=== PATIENT | female | born 1970 | race Caucasian/White ===

== ENCOUNTER 2022-12-09 11:02 | Outpatient (OUT) | payer BC, SELFPAY ==
--- NOTE | 2022-12-09 11:11 | ECG_ITS ---
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
--- NOTE | 2022-12-09 11:35 | XR_ITS ---
The [address] [address] Patient Name: CHEN RICHARD MRN: [id number] date: 1970 Sex: F Assigned Patient Location: [facility] Current Patient Location: Accession/Order Number: [id number] Exam Date: 12/09/2022 11:50 Report Date: 12/10/2022 09:23 At the request of: SARAH CAMILO Procedure: XR chest 2V EXAM: XR chest 2V HISTORY: PRE OP EXAM COMPARISON: None. TECHNIQUE: PA and lateral views of the chest. FINDINGS: The cardiomediastinal silhouette is normal. No focal consolidation is identified. There is no pneumothorax. No pleural effusion is noted. There are healed fracture deformity of the left ribs. XR/XR chest 2V IMPRESSION: No acute cardiopulmonary process. Electronically authenticated by: REESE LEDEZMA Date: 12/10/2022 09:23
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
[2022-12-09 12:13] LABS: Basophils Percent Auto 0.8 % (0.2-2.0); Eosinophils Absolute Auto 0.2 10^3/uL (0.0-0.7); Eosinophils Percent Auto 4.6 % (0.9-7.0); Hematocrit 37.2 % (36.0-48.0); Hemoglobin 12.6 g/dL (12.0-16.0); Immature Granulocytes Abs Auto 0.01 10^3/uL (0.00-0.03); Immature Granulocytes Pct Auto 0.3 % (0.0-0.5); Lymphocytes Absolute Auto 1.4 10^3/uL (1.2-3.8); Lymphocytes Percent Auto 36.7 % (20.5-60.0); Mean Corpuscular HGB Conc 33.9 g/dL (29.9-35.2); Mean Corpuscular Hemoglobin 29.2 pg (26.7-34.0); Mean Corpuscular Volume 86.3 fL (81.0-99.0); Mean Platelet Volume 9.2 fL (9.5-13.5); Monocytes Absolute Auto 0.3 10^3/uL (0.3-0.8); Monocytes Percent Auto 9.2 % (1.7-12.0); Neutrophils Absolute Auto 1.8 10^3/uL (1.4-6.5); Neutrophils Percent Auto 48.4 % (43.0-75.0); Platelet Count 259 10^3/uL (150-450); Red Blood Count 4.31 10^6/uL (4.20-5.40); Red Cell Distribution Width 12.1 % (11.0-15.0); White Blood Count 3.7 10^3/uL (4.0-11.0)
[2022-12-09 12:30] LABS: Anion Gap 10.4; BUN Creatinine Ratio 23.3; Carbon Dioxide 30.3 mmol/L (21.0-32.0); Chloride 104 mmol/L (98-107); Estimated GFR (African America >60 (>=60); Estimated GFR (Non-African Ame >60 (>=60); Glucose 93 mg/dL (74-106); Potassium 3.7 mmol/L (3.5-5.1); Sodium 141 mmol/L (136-145)
== END 2022-12-09 11:03 | disposition home or self-care (01) ==
LOC: PST 11:04
PROVIDERS: Visit Provider Urology
DX: Z01.810 Encounter for preprocedural cardiovascular examination (principal); Z01.812 Encounter for preprocedural laboratory examination; R31.9 Hematuria, unspecified; F32.A Depression, unspecified; F17.210 Nicotine dependence, cigarettes, uncomplicated; N35.92 Unspecified urethral stricture, female
CPT/HCPCS: 71046; 80048; 85025; 93005; G0463

== ENCOUNTER 2022-12-16 07:38 | Day surgery (SDC) | payer BC, SELFPAY ==
[2022-12-09 11:49] VITALS: BP 99/69; PULSE 60; RESP 16; TEMP 36.3; O2SAT 98; BMI 25.6
[2022-12-16 07:55] VITALS: BP 109/56; PULSE 58; RESP 16; TEMP 35.9; O2SAT 96
[2022-12-16] MEDS: LACTATED RINGER'S SOLUTION 1,000 ML 50 ML IV ×2 (08:08→10:07)
[2022-12-16] MEDS: CEFAZOLIN SODIUM/DEXTROSE,ISO 1 GM/50 ML IV.SOLN IV (08:55)
[2022-12-16 09:24] VITALS: BP 87/59; PULSE 60; RESP 19; TEMP 36.5; O2SAT 95
--- NOTE | 2022-12-16 09:28 | PM.URSON ---
Urology Surgery Operative Note Operative Note Procedure Date: 12/16/22 Time Out Performed: yes Pre-op Diagnosis: recurrent urethral stricture Post-op Diagnosis: same as pre-op Procedures performed: #1. Urethral dilation with [place] sounds to 32 Citizen [place]. #2. Cystoscopy. Anesthesia: MAC and local Primary Surgeon: Maikol Nichole Complications: none Estimated blood loss (mL): 5 Findings: #1. Severe urethral stenosis. #2. Severe atrophic vaginitis. #3. Moderate cystocele Specimens: non- Indications for Procedures: The patient was brought to the operating room and placed on the operating room table in the supine position. SCDs were placed on the lower extremities and turned on and functioning during the entire case. Timeout was done by all parties in the room. We all agreed upon the patient's identification and the planned procedures for this patient. Mac anesthesia was then administered. The patient was then repositioned into the modified dorsal lithotomy position. All pressure points were satisfactorily padded. Genitalia were sterilely prepped and draped in usual fashion. upon initial inspection I could see that she had severe urethral stenosis. 22 Citizen [place] cystoscope would not fit. She also had rather severe atrophic vaginitis. I started by using Maik sounds. She was dilated from 16 [place] up to 32 [place]. Her tissues were fairly brittle and dry. I then passed the cystoscope into the bladder. Panendoscopy showed no evidence of any tumors or stones. She had surprisingly high-grade trabeculation with a few diverticuli formation. She also had a significant grade 2-3 cystocele. The bladder was drained of its contents. The scope was then removed. She was then transferred to a [facility] bed and wheeled to PACU in stable condition. We will get her started on estradiol vaginal cream 1 g twice weekly. She has been instructed to rub a small amount around the urethra at each application also.
[2022-12-16 09:39] VITALS: BP 88/61; PULSE 50; RESP 19; O2SAT 95
[2022-12-16 09:54] VITALS: BP 90/56; PULSE 55; RESP 18; O2SAT 95
--- NOTE | 2022-12-16 10:10 | PC.NURSE ---
Patient attempted to urinate without success. hung new bag of fluids and she is drinking water.
[2022-12-16 10:24] VITALS: BP 95/52; PULSE 60; RESP 16; O2SAT 97
--- NOTE | 2022-12-16 10:49 | PC.NURSE ---
Patient denies pain at discharge and urinated without difficulty at this time.
== END 2022-12-16 10:48 | disposition home or self-care (01) ==
PROVIDERS: Visit Provider Urology
PROC: (CPT 52281; principal; 2022-12-16 08:50)
DX: N35.12 Postinfective urethral stricture, not elsewhere classified, female (principal); F17.210 Nicotine dependence, cigarettes, uncomplicated; F32.A Depression, unspecified; R10.9 Unspecified abdominal pain; Z90.710 Acquired absence of both cervix and uterus; Z98.51 Tubal ligation status; R33.9 Retention of urine, unspecified; R35.1 Nocturia; Z87.440 Personal history of urinary (tract) infections; N39.46 Mixed incontinence; R31.21 Asymptomatic microscopic hematuria; N94.10 Unspecified dyspareunia; N95.2 Postmenopausal atrophic vaginitis; N81.10 Cystocele, unspecified; N32.89 Other specified disorders of bladder
CPT/HCPCS: 52281; 36415

== ENCOUNTER 2023-04-29 12:39 | Emergency (ER) | payer BC, SELFPAY ==
[2023-04-29 12:46] VITALS: BP 116/77; PULSE 68; RESP 18; TEMP 36.8; O2SAT 97; BMI 25.5
--- NOTE | 2023-04-29 13:06 | CT_ITS ---
The [address] [address] Patient Name: CHEN RICHARD MRN: [id number] date: 1970 Sex: F Assigned Patient Location: ER Current Patient Location: ER Accession/Order Number: [id number] Exam Date: 04/29/2023 13:12 Report Date: 04/29/2023 13:35 At the request of: TANNER HENDERSON Procedure: CT head/brain wo con EXAM: CT head/brain wo con CLINICAL INDICATION: head injury TECHNIQUE: Unenhanced computerized tomography of the head was performed. Automated dose reduction technique was employed. COMPARISON: None. FINDINGS: The ventricles are normal in size, configuration, and position for age. There is no intra- or extra-axial mass, hemorrhage, or fluid collection. No areas of abnormal mass effect or attenuation are noted. Visualized paranasal sinuses are free of mucosal disease. No depressed calvarial fracture. CT/CT head/brain wo con IMPRESSION: No acute intracranial abnormality noted. Electronically authenticated by: SCOOBY LOPEZ Date: 04/29/2023 13:35
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
[2023-04-29] MEDS: ACETAMINOPHEN 500 MG TABLET 1000 MG PO (13:31)
[2023-04-29] MEDS: ONDANSETRON 4 MG RAPDIS TABLET SL (13:32)
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
== END 2023-04-29 14:26 | disposition home or self-care (01) ==
PROVIDERS: Emergency Provider Emergency Medicine
DX: S09.8XXA Other specified injuries of head, initial encounter (principal); F07.81 Postconcussional syndrome; W22.09XA Striking against other stationary object, initial encounter
CPT/HCPCS: 70450; 99284; Q0162

== ENCOUNTER 2024-07-05 11:11 | Outpatient (OUT) | payer MEDICAID, SELFPAY ==
--- NOTE | 2024-07-05 11:14 | MM_ITS ---
Patient Name: CHEN RICHARD MR#: [id number] : 1970 Exam Date: 07/05/2024 Ordering Doctor: NON-STAFF PHYSICIAN RADIOLOGY REPORT PROCEDURE: MM TOMOSYNTHESIS SCREENING BI COMPARISON: MG MAMM SCREEN [place] W CAD, 05/09/2023. MG MAMM SCREEN [place] W CAD, 04/10/2022. MG MAMM SCREEN [place] W CAD, 11/09/2016. MG MAMM [place] DIAG W CAD DIG, 08/14/2013. INDICATIONS: Screening Calculator Name NCI Breast Cancer Risk Assessment Tool 5 Year Breast Cancer Risk 0.90% Lifetime Breast Cancer Risk 6.70% Personal Breast Cancer No Personal Ovarian Cancer No Treatments None Family Cancers None LOCATION: [facility] BREAST COMPOSITION: There are scattered areas of fibroglandular density. FINDINGS: DIAGNOSTIC CATEGORY 1--NEGATIVE. RIGHT BREAST: No significant suspicious finding. LEFT BREAST: No significant suspicious finding. RECOMMENDATIONS: ROUTINE MAMMOGRAM AND CLINICAL EVALUATION IN 12 MONTHS. PLEASE NOTE: A NORMAL MAMMOGRAM DOES NOT EXCLUDE THE POSSIBILITY OF BREAST CANCER. A CLINICALLY SUSPICIOUS PALPABLE LUMP SHOULD BE BIOPSIED. Dictated by: Urban Leonard DO on 07/05/2024 at 16:15 Approved by: Urban Leonard DO on 07/05/2024 at 16:19
--- NOTE | 2024-07-05 11:44 | XR_ITS ---
[facility] [place] [id number] Patient Name: CHEN RICHARD MRN: [id number] date: 1970 Sex: F Assigned Patient Location: [facility] Current Patient Location: [facility] Accession/Order Number: [id number] Exam Date: 07/05/2024 13:08 Report Date: 07/05/2024 13:11 At the request of: NON-STAFF PHYSICIAN MD Procedure: XR mandible <4V MANDIBLE SERIES - - 4 views CLINICAL HISTORY: Jaw Pain COMPARISON: None FINDINGS: No displaced mandibular fracture is seen. Temporomandibular joints demonstrate mild degenerative change. No bony destruction is seen. Paranasal sinuses appear clear. XR/XR mandible <4V IMPRESSION: MILD DEGENERATIVE CHANGES OF THE TEMPOROMANDIBULAR JOINTS. NO DISPLACED MANDIBULAR FRACTURE IS SEEN. Impression dictated by: Urban Leonard Jr., D.O. 07/05/2024 1:11 PM Dictation Location: [place] [address] Electronically authenticated by: [id number] Y Date: 07/05/2024 13:11
[2024-07-05 12:10] LABS: Basophils Percent Auto 0.6 % (0.2-2.0); Eosinophils Absolute Auto 0.2 10^3/uL (0.0-0.7); Hematocrit 38.4 % (36.0-48.0); Hemoglobin 13.2 g/dL (12.0-16.0); Immature Granulocytes Abs Auto 0.03 10^3/uL (0.00-0.03); Immature Granulocytes Pct Auto 0.6 % (0.0-0.5); Lymphocytes Absolute Auto 1.9 10^3/uL (1.2-3.8); Lymphocytes Percent Auto 35.5 % (20.5-60.0); Mean Corpuscular HGB Conc 34.4 g/dL (29.9-35.2); Mean Corpuscular Hemoglobin 28.9 pg (26.7-34.0); Mean Corpuscular Volume 84.2 fL (81.0-99.0); Mean Platelet Volume 8.9 fL (9.5-13.5); Monocytes Absolute Auto 0.5 10^3/uL (0.3-0.8); Monocytes Percent Auto 9.1 % (1.7-12.0); Neutrophils Absolute Auto 2.7 10^3/uL (1.4-6.5); Neutrophils Percent Auto 51.2 % (43.0-75.0); Platelet Count 266 10^3/uL (150-450); Red Blood Count 4.56 10^6/uL (4.20-5.40); White Blood Count 5.3 10^3/uL (4.0-11.0)
[2024-07-05 13:34] LABS: Alanine Aminotransferase 27 U/L (14-59); Albumin Globulin Ratio 1.3; Albumin Level 3.9 g/dL (3.4-5.0); Alkaline Phosphatase 82 U/L (46-116); Anion Gap 13.6; Aspartate Amino Transferase 21 U/L (15-37); Bilirubin Total 0.5 mg/dL (0.2-1.0); Calcium 9.3 mg/dL (8.5-10.1); Carbon Dioxide 29.5 mmol/L (21.0-32.0); Chloride 101 mmol/L (98-107); Chol HDL Ratio 4.9; Cholesterol 275 mg/dL (<=200); Estimated GFR (African America >60 (>=60 mL/min/1.73m^2); Estimated GFR (Non-African Ame 58 (>=60 mL/min/1.73m^2); Globulin 3.1 g/dL; Glucose 93 mg/dL (74-106); HDL Cholesterol 56 mg/dL (40-60); Potassium 4.1 mmol/L (3.5-5.1); Sodium 140 mmol/L (136-145); Thyroid Stimulating Hormone 1.855 uIU/mL (0.358-3.740); Triglycerides 94 mg/dL (<=150); VLDL CHOLESTEROL 18.8 mg/dL
== END 2024-07-05 11:12 | disposition home or self-care (01) ==
LOC: MAMMO 11:11
DX: Z12.31 Encounter for screening mammogram for malignant neoplasm of breast (principal); R68.84 Jaw pain; E78.2 Mixed hyperlipidemia
CPT/HCPCS: 36415; 70100; 77063; 77067; 80053; 80061; 84443; 85025